=== PATIENT | female | born 1950 | race Caucasian/White ===

== ENCOUNTER 2019-12-16 09:29 | Outpatient (CLI) | payer MEDICARE, SELFPAY ==
--- NOTE | 2019-12-16 09:41 | MR_ITS ---
WS: [id number] MRI LEFT SHOULDER HISTORY: LEFT SHOULDER PAIN COMPARISON: None available. TECHNIQUE: Multiplanar sequences of the shoulder joint are submitted. Mild hypertrophic changes at the AC joint. Soft tissue and bone hypertrophy and small amount of edema along the AC ligament. Osteophytes encroach upon the supraspinatus muscle and tendon over the gayle l head. No os acromion. Biceps tendon is in normal position. Small subchondral cyst in the humeral he ad superiorly. Humeral head is high riding with encroachment and narrowing of the acromiohumeral interval. There is increased T2 signal in the distal supraspinatus tendon, favor these changes in the tendon are signifi cant tendinopathy and not tears at this time. Patient is at risk for tears as there is significant en croachment upon the supraspinatus tendon by narrowing of the acromial humeral space acromial osteophy darian. The tendon is not retracted and there is no loss of muscle or edema. There is fluid in the subac romial subdeltoid bursa. No labral tears. MR/MR shoulder LT wo con* [id number] IMPRESSION: 1. Moderate AC joint arthropathy with osteophytes encroaching upon the suprasp inatus tendon and muscle. 2. High riding humeral head causing narrowing of the acromial humeral interval . 3. Increased signal in the distal 2 to 3 cm of the supraspinatus tendon with n o retraction. Favor this is most likely significant tendinopathy but patient is at risk for tendon tear due to the narrowing of the joint space and encroachme nt by osteophytes.
== END 2019-12-16 09:30 | disposition home or self-care (01) ==
LOC: RADWPI 09:39
PROVIDERS: Family Provider Family Medicine; PCP Family Medicine; Visit Provider Nurse Practitioner Family
DX: M75.80 Other shoulder lesions, unspecified shoulder (principal); M25.512 Pain in left shoulder; M12.812 Other specific arthropathies, not elsewhere classified, left shoulder
CPT/HCPCS: 73221

== ENCOUNTER 2020-01-20 06:00 | Outpatient (RCR) | payer MEDICARE, SELFPAY | END 2020-02-18 23:59 | disposition home or self-care (01) | LOC: SPT 06:00 | PROVIDERS: PCP Family Medicine; Referring Provider Orthopaedic Surgery; Visit Provider Orthopaedic Surgery | DX: M77.9 Enthesopathy, unspecified (principal) | CPT/HCPCS: 97110; 97161 ==

== ENCOUNTER 2020-02-19 09:00 | Outpatient (RCR) | payer MEDICARE, SELFPAY | END 2020-02-26 09:00 | disposition home or self-care (01) | LOC: SPT 09:00 | PROVIDERS: PCP Family Medicine; Referring Provider Orthopaedic Surgery; Visit Provider Orthopaedic Surgery | DX: M25.512 Pain in left shoulder (principal) | CPT/HCPCS: 97110 ==

== ENCOUNTER 2020-03-01 13:29 | Outpatient (CLI) | payer MEDICARE, SELFPAY ==
--- NOTE | 2020-03-01 13:35 | MM_ITS ---
WS: [id number] BILATERAL SCREENING DIGITAL MAMMOGRAM WITH CAD HISTORY: SCREENING COMPARISON: 12/17/2017 and 06/14/2015 Bilateral CC and MLO views submitted. Computer aided detection analyzed. Breast composition: There are scattered areas of fibroglandular density. No suspicious masses, microc alcifications or architectural distortion. MM/[place] [id number] IMPRESSION: BI-RADS: 1-Negative FOLLOW UP: 1 Year Follow-up
--- NOTE | 2020-03-01 14:43 | XR_ITS ---
WS: [id number] SCREENING DEXA SCAN [employer] CLINICAL INFORMATION: ASYMTOMATIC MENOPAUSAL STATE COMPARISON: FINDINGS: The L1-L4 bone mineral density measures 0.944 g/cm2. This corresponds to a T score score of -2.0 and Z score of -0.5. Left femoral neck bone mineral density measures 0.872 g/cm2. This corresponds to a T score of -1.1 an d Z score of 0.3. Right femoral neck bone mineral density measures 0.793 g/cm2. This corresponds to a T score -1.7of an d Z score of -0.3. Mean femoral neck bone mineral density measures 0.833 g/cm2. This corresponds to a T score of -1.4 an d Z score of 0.0. XR/XR DEXA axial skeleton* [id number] IMPRESSION: Osteopenia Patient's FRAX calculated 10 year probability for major osteoporotic fracture i s 20.4 % and osteoporotic hip fracture is 4.5%.
== END 2020-03-01 13:30 | disposition home or self-care (01) ==
PROVIDERS: PCP Family Medicine; Visit Provider Family Medicine
DX: Z12.31 Encounter for screening mammogram for malignant neoplasm of breast (principal); Z78.0 Asymptomatic menopausal state; M85.89 Other specified disorders of bone density and structure, multiple sites
CPT/HCPCS: 77067; 77080

== ENCOUNTER 2021-02-14 10:37 | Outpatient (CLI) | payer MEDICARE, SELFPAY ==
--- NOTE | 2021-02-14 10:47 | USCV_ITS ---
Stress Echo Emily Reeves Age: 70 Gender: F : 1950 Exam Date: 02/14/2021 11:25 Ordering Phys: Teena Nam MD Technologist: [place] [facility] [place]: dyspnea Rhythm: Sinus Patient History: Dyspnea/SOB Cardiac Medications: Medications in past 24 hours: Contrast: Stress Results Protocol: Nelson Total dose(mL): Exercise Duration (min:sec): 5:29 METS: 7 Resting HR: 84 Resting BP: 119 / 77 Peak HR: 136 Peak BP: 262 / 79 Max Predicted HR: 148 92 % Max Predicted HR Target HR: 126 Double Product: 72796 Stress Summary: The patient's target heart rate was achieved BP Response: Normal Reason for Termination: Test terminated after reaching maximum heart rate Cardiac Symptoms: None ECG Analysis Resting ECG: Stress ECG: Arrhythmia: MEASUREMENTS (Male/Female) Normal Values FINDINGS Baseline echocardiogram: Normal left ventricle cavity size. Normal left ventricle ejection fraction at the baseline 60%. No wall motion abnormality. Peak exercise: Good augmentation of left ventricle cavity and systolic function. No wall motion abnormality. Post exercise recovery: No wall motion abnormality noted. CONCLUSIONS Echocardiographic portion of treadmill stress test is not suggestive of ischemia. EKG segment will be documented separately. Kamryn Castillo MD (Electronically Signed) Final Date: 14 February 2021 21:20 S
[2021-02-14 11:10] VITALS: BMI 27.6
--- NOTE | 2021-02-14 11:11 | ECG_ITS ---
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 Baseline heart rate was 82 beats per minute. Baseline blood pressure was 119/77 millimeters of mercury. Target heart rate was 148 beats per minute. Maximum heart rate achieved was 136, which was 91 % of the target heart rate. Maximum blood pressure was 200/79 millimeters of mercury. Total exercise time was 5 minutes 29 sec. Maximum METs achieved was 7.0, maximum VO2 was 24.5. The reason for ending the test was maximum effort achieved. The patient complained of shortness of breath during the stress test, which then resolved at the end of the test. ELECTROCARDIOGRAM: BASELINE: Showed sinus rhythm, normal axis, interventricular conduction delay, no significant ST-T changes at the baseline noted. EXERCISE: At the peak exercise level, no significant ST-T changes suggestive of ischemia noted. RECOVERY: During the recovery period, heart rate dropped appropriately. No significant ST-T changes in the recovery suggestive of ischemia noted. CONCLUSION: 1. Exercise capacity fair. 2. Heart rate response was appropriate. 3. Blood pressure response was hypertensive. 4. Symptoms not suggestive of ischemia. 5. Electrocardiogram portion of the stress test was not suggestive of ischemia. 6. Nuclear scan will be documented separately. Electronically Signed On 02-15-2021 20:23:07 CDT by CHELSY SHEEHAN [id number]
[2021-02-14 11:48] VITALS: BP 127/57; PULSE 82
== END 2021-02-14 10:38 | disposition home or self-care (01) ==
LOC: CDL 10:42
PROVIDERS: PCP Family Medicine; Visit Provider Family Medicine
DX: R06.00 Dyspnea, unspecified (principal)
CPT/HCPCS: 93017; 93350

== ENCOUNTER 2021-07-26 14:07 | Outpatient (CLI) | payer MEDICARE, SELFPAY ==
--- NOTE | 2021-07-26 14:23 | XRR_ITS ---
PROCEDURE INFORMATION: Exam: XR Chest Exam date and time: 07/26/2021 2:23 PM Age: 71 years old Clinical indication: Dyspnea and shortness of breath TECHNIQUE: Imaging protocol: XR of the chest. Views: 2 views. COMPARISON: CT Chest/Abdomen/Pelvis w IV* 03/06/2018 11:32 AM FINDINGS: Lungs: Unremarkable. No consolidation. Pleural spaces: Unremarkable. No pleural effusion. No pneumothorax. Heart/Mediastinum: Unremarkable. No cardiomegaly. Bones/joints: Unremarkable. XR/XR chest 2V* [id number] IMPRESSION: No acute findings.
== END 2021-07-26 14:08 | disposition home or self-care (01) ==
PROVIDERS: PCP Family Medicine; Visit Provider Family Medicine
DX: R06.00 Dyspnea, unspecified (principal); R06.02 Shortness of breath
CPT/HCPCS: 71046

== ENCOUNTER 2021-09-27 14:18 | Outpatient (CLI) | payer MEDICARE, SELFPAY ==
--- NOTE | 2021-09-27 14:39 | PFTS_ITS ---
Date of Study:09/27/21 Date of Dictation: 10/03/2021 MECHANICS: Prebronchodilator forced vital capacity (FVC) is normal Prebronchodilator forced expiratory volume in one second (FEV1) is normal. FEV1/FVC is normal. There is no postbronchodilator study. FLOW VOLUME LOOP: Normal . LUNG VOLUMES: Total lung capacity (TLC) is normal. Residual volume (RV) is normal. DIFFUSING CAPACITY FOR CARBON MONOXIDE: Mildly reduced 74% INTERPRETATION: The spirometry is normal. There is no postbronchodilator study. Lung volumes are normal. Gas transfer is mildly reduced 74%. Correlate clinically. MTDD
== END 2021-09-27 14:19 | disposition home or self-care (01) ==
PROVIDERS: PCP Family Medicine; Visit Provider Family Medicine
DX: R06.02 Shortness of breath (principal)
CPT/HCPCS: 94010; 94726; 94729

== ENCOUNTER 2021-12-29 13:57 | Outpatient (CLI) | payer MEDICARE, SELFPAY ==
--- NOTE | 2021-12-29 14:04 | MM_ITS ---
WS: [id number] BILATERAL 3D TOMOSYNTHESIS DIGITAL SCREENING MAMMOGRAPHY WITH CAD CLINICAL INFORMATION: SCREENING HISTORY: Screening mammogram. No current complaints. COMPARISON: March 01, 2020 TECHNIQUE: Bilateral CC and MLO views. FINDINGS: Scattered fibroglandular densities bilaterally. No suspicious focal mass, asymmetry, calcifications, or architectural distortion. No evidence of malignancy. MM/[place] [id number] IMPRESSION: BI-RADS: 1-Negative FOLLOW UP: 1 Year Follow-up Recommend return to annual screening mammography.
== END 2021-12-29 13:58 | disposition home or self-care (01) ==
LOC: RAD 13:58
PROVIDERS: PCP Family Medicine; Visit Provider Family Medicine
DX: Z12.31 Encounter for screening mammogram for malignant neoplasm of breast (principal)
CPT/HCPCS: 77063; 77067

== ENCOUNTER 2023-12-28 13:00 | Outpatient (CLI) | payer MEDICARE, SELFPAY ==
--- NOTE | 2023-12-28 14:02 | MM_ITS ---
WS: [id number] BILATERAL 3D TOMOSYNTHESIS DIGITAL SCREENING MAMMOGRAPHY WITH CAD CLINICAL INFORMATION: SCREENING HISTORY: Screening mammogram. No current complaints. COMPARISON: 2021 TECHNIQUE: Bilateral CC and MLO views. FINDINGS: Scattered fibroglandular densities bilaterally. No suspicious focal mass, asymmetry, calcifications, or architectural distortion. No evidence of malignancy. MM/[place] [id number] IMPRESSION: BI-RADS: 1-Negative FOLLOW UP: 1 Year Follow-up Recommend return to annual screening mammography.
== END 2023-12-28 13:56 | disposition home or self-care (01) ==
PROVIDERS: PCP Family Medicine; Visit Provider Family Medicine
DX: Z12.31 Encounter for screening mammogram for malignant neoplasm of breast (principal)
CPT/HCPCS: 77063; 77067

== ENCOUNTER → 2024-03-11 08:58 | Outpatient (BNVA) | payer MEDICARE, SELFPAY | PROVIDERS: PCP Family Medicine; Referring Provider Family Medicine; Visit Provider Nurse Practitioner Family | DX: D48.5 Neoplasm of uncertain behavior of skin (principal); B07.8 Other viral warts; L72.11 Pilar cyst; L82.1 Other seborrheic keratosis; D22.5 Melanocytic nevi of trunk | CPT/HCPCS: 11102; 17110; 99203 ==

== ENCOUNTER → 2024-03-31 12:59 | Outpatient (BNVA) | payer MEDICARE, SELFPAY | PROVIDERS: PCP Family Medicine; Visit Provider Dermatology | DX: L82.1 Other seborrheic keratosis (principal); L72.11 Pilar cyst; B07.8 Other viral warts | CPT/HCPCS: 11422; 13121; 17110; 99212 ==

== ENCOUNTER → 2024-04-23 10:21 | Outpatient (BNVA) | payer MEDICARE, SELFPAY | PROVIDERS: PCP Family Medicine; Visit Provider Nurse Practitioner Family | DX: L82.1 Other seborrheic keratosis (principal); L81.4 Other melanin hyperpigmentation; B07.8 Other viral warts; L29.89 Other pruritus; L53.8 Other specified erythematous conditions | CPT/HCPCS: 17110; 99213 ==

== ENCOUNTER 2025-03-11 13:19 | Outpatient (CLI) | payer MEDICARE, SELFPAY ==
--- NOTE | 2025-03-11 13:29 | XR_ITS ---
WS: [id number] Right hip, 2 views, AP pelvis, 03/11/2025 Clinical Data: RIGHT LEG PAIN AND WEAKNESS. Comparison: None. Findings: No fractures or dislocations are seen. The right hip shows no erosion, sclerosis, narrowing, cyst formation or fragmentation of the right femoral head. There is an acetabular lip. The left hip shows an acetabular lip. The soft tissues are not remarkable. The adjacent pelvis is normal. XR/XR hip RT 2-3V wo/w pel* [id number] Impression: Osteoarthritis of both hips.
== END 2025-03-11 13:20 | disposition home or self-care (01) ==
PROVIDERS: PCP Nurse Practitioner Family; Visit Provider Nurse Practitioner Family
DX: M25.551 Pain in right hip (principal); R29.898 Other symptoms and signs involving the musculoskeletal system; M24.852 Other specific joint derangements of left hip, not elsewhere classified; M16.0 Bilateral primary osteoarthritis of hip
CPT/HCPCS: 73502

== ENCOUNTER 2025-04-07 15:15 | Outpatient (CLI) | payer MEDICARE, SELFPAY ==
--- NOTE | 2025-04-07 15:18 | MR_ITS ---
WS: [id number] MRI RIGHT HIP WITHOUT CONTRAST. COMPARISON: Radiograph 03/11/2025 Multiplanar, multisequence imaging is performed without contrast. Mild to moderate narrowing of the hip joints. Greater narrowing involving the RIGHT hip. There is acetabular osteophytic ridging. No acute fracture or marrow edema. Mild osteophytic ridging around the femoral head-neck junction. There is very slight bone upon bone contact involving the superior lateral hip. There is a very small amount of subchondral edema involving the lateral femoral head. No soft tissue masses or adenopathy. No labral tear is identified. Sigmoid diverticulosis without acute diverticulitis. Degenerative spondylitic changes in the lower lumbar spine. MR/MR hip RT wo con* [id number] IMPRESSION: 1. Moderate arthritic changes involving the RIGHT hip joint. 2. Acetabular osteophytic ridging around the acetabulum and femoral head neck junction. 3. Very mild acetabular and femoral head contact involving the superior latera l acetabulum. 4. No joint effusion or fracture.
== END 2025-04-07 15:16 | disposition home or self-care (01) ==
LOC: RAD 15:15
PROVIDERS: PCP Nurse Practitioner Family; Visit Provider Nurse Practitioner Family
DX: M16.11 Unilateral primary osteoarthritis, right hip (principal); Z74.09 Other reduced mobility; M25.851 Other specified joint disorders, right hip; M25.751 Osteophyte, right hip; M89.8X8 Other specified disorders of bone, other site; R60.0 Localized edema; K57.30 Diverticulosis of large intestine without perforation or abscess without bleeding; M47.896 Other spondylosis, lumbar region
CPT/HCPCS: 73721

== ENCOUNTER → 2025-05-01 07:50 | Outpatient (BNVA) | payer MEDICARE, SELFPAY | PROVIDERS: PCP Nurse Practitioner Family; Visit Provider Orthopaedic Surgery | DX: M17.11 Unilateral primary osteoarthritis, right knee (principal) | CPT/HCPCS: 99204 ==